=== PATIENT | female | born 1955 | race Caucasian/White ===

== ENCOUNTER → 2018-09-21 14:00 | Outpatient (CLI) | payer OTHER, SELFPAY | DX: Z23 Encounter for immunization (principal) | CPT/HCPCS: 90471; 90686 ==

== ENCOUNTER 2018-12-18 10:06 | Emergency (ER) | payer OTHER, SELFPAY ==
[2018-12-18 10:36] VITALS: BP 151/88; PULSE 77; RESP 14; TEMP 36.9; O2SAT 99
[2018-12-18 10:55] VITALS: PULSE 68
--- NOTE | 2018-12-18 11:00 | DI.RAD.S_ITS ---
PROCEDURE: XR HUMERUS LT 2V INDICATIONS: fall w/ pain left shoulder / humerous TECHNIQUE: 2 views of the humerus were acquired. COMPARISON: None. FINDINGS: Bones: Impaction and anterior displacement of the surgical neck humeral fracture. Additionally, there is minimally displaced combination involving the humeral head greater tuberosity. No definite shoulder dislocation.. Soft tissues: No suspicious soft tissue calcifications. IMPRESSION: Redemonstrated fracture of the humeral head and neck. No definite shoulder dislocation. Dictated by: Akiko Vidales M.D. on 12/18/2018 at 12:15 Approved by: Akiko Vidales M.D. on 12/18/2018 at 12:17
--- NOTE | 2018-12-18 11:00 | DI.RAD.S_ITS ---
PROCEDURE: XR SHOULDER LT MIN 2V INDICATIONS: fall w/ pain left shoulder / humerous TECHNIQUE: 2 views of the shoulder were acquired. COMPARISON: None. FINDINGS: Bones: Anteriorly displaced, impacted, and mildly comminuted fracture involving the humeral head and surgical neck. No suspicious bony lesions. Visualized ribs appear intact. Soft tissues: No suspicious soft tissue calcifications. IMPRESSION: Displaced, impacted, and comminuted humeral head and neck fracture. Dictated by: Akiko Vidales M.D. on 12/18/2018 at 12:14 Approved by: Akiko Vidales M.D. on 12/18/2018 at 12:15
--- NOTE | 2018-12-18 11:20 | ED.UPPEXIN ---
HPI - Extremity Injury (Upper) General Chief Complaint: Extremity Injury, Upper Stated Complaint: FELL HURT UPPER ARM JUST NOW Time Seen by Provider: 12/18/18 11:19 Source: patient and family (Son) Mode of arrival: ambulatory Limitations: no limitations History of Present Illness HPI narrative: This is a 63-year-old female comes to the emergency department with complaint of left shoulder pain. Patient was out walking her dog when she slipped and fell onto the shoulder. She had immediate pain. She denies injuring her head, neck or back. She states that she is not having any numbness tingling or weakness into the lower arm. She does not wish to move it. Patient denies any shortness of breath or chest pain. She denies any loss of consciousness no nausea or vomiting. Related Data Home Medications Medication Instructions Recorded Confirmed multivitamin 1 cap PO QAM 12/18/18 12/18/18 Previous Rx's Medication Instructions Recorded hydrocodone-acetaminophen [[place]] 1 tab PO Q6H PRN #20 tab 12/18/18 Allergies Allergy/AdvReac Type Severity Reaction Status Date / Time No Known Drug Allergies Allergy Verified 12/18/18 10:41 Review of Systems Review of Systems ROS Unobtainable: All systems reviewed & are unremarkable except as noted in HPI and below Constitutional Denies weakness ENT Ears, Nose, Mouth, and Throat: Denies neck pain Musculoskeletal Reports arthralgias, Denies joint swelling, Reports limited range of motion, Denies muscle weakness, Denies neck pain, Denies numbness, Reports radiating pain into limb, Reports stiffness and Denies tingling Integumentary/Breasts Denies unusual bruising and Denies wounds Neurologic Denies focal weakness, Denies numbness, Denies sensory deficit, Denies tingling and Denies weakness PFS Medical History H/O: hysterectomy (Acute) H/O: hysterectomy (Acute) History of colon cancer in adulthood (Acute) Surgical History H/O partial resection of colon (Acute) Social History Smoking Status: Never smoker Social History Smoking Status: Never smoker Exam Narrative Exam Narrative: GEN: Patient appears in mild distress. HEAD: No evidence of trauma, no raccoon/Lam sign. NECK: Nontender, painless range of motion, trachea midline Negative Nexus criteria, there is no mid line tenderness, distracting injury, altered mental status, neuro deficit, recent EtOH. EYES: PERRLA, EOMI ENT: External inspection normal, trachea is midline, airway is normal and with normal occlusion, No bony tenderness RESP: Chest is nontender and has symmetric movement, no ecchymosis, breath sounds are normal no crackles, wheezes or rales CVS: Heart sounds are normal, no murmur noted, No JVD. ABG/GI: Nontender, soft, normal bowel sounds, no distention, no organomegaly NEURO: Oriented AOx3, neuro is grossly intact, sensation and motor is normal all 4 extremities moving, cranial nerves II through XII are intact, GCS is 15 PSYCH: Normal mood and affect SKIN: Intact, warm and dry, no crepitus and without decubitus BACK: No CVA tenderness, no vertebral tenderness, no step-off's, no crepitus EXT: Patient has tenderness over the proximal shoulder no clear deformity, patient does not wish to take her arm through range of motion. She does not have any tenderness over the elbow, distal forearm, wrist or hand. Deck Mate is equal bilaterally, she has sensation throughout the hand and lower arm. 2+ radial pulse bilaterally. Patient ambulated in to the room. normal color and temperature. Initial Vital Signs Initial Vital Signs: Vital Signs Temperature 98.5 F 12/18/18 10:36 Pulse Rate 77 12/18/18 10:36 Respiratory Rate 14 12/18/18 10:36 Blood Pressure 151/88 H 12/18/18 10:36 Pulse Oximetry 99 12/18/18 10:36 Scores GCS Hugo coma scale eye opening: Spontaneous Hugo coma scale verbal response: Orientated [place] coma scale motor response: Obey commands [place] coma scale total score: 15 Course Orders Ordered: ED Orders 12/18/18 11:00 XR humerus LT 2V Stat XR shoulder LT min 2V Stat 12/18/18 11:47 CT UE LT wo con Stat Discontinued Medications Hydrocodone Bitart/Acetaminophen ([place] 5/325) 1 tab PO NOW ONE Stop: 12/18/18 11:35 Last Admin: 12/18/18 11:46 Dose: 1 tab Vital Signs - 8 hr 12/18/18 10:36 12/18/18 10:55 12/18/18 11:52 Temperature 98.5 F Pulse Rate 77 77 Pulse Rate [Left Radial] 68 Respiratory Rate 14 15 Blood Pressure 151/88 H Blood Pressure [Right Arm] 162/103 H Pulse Oximetry 99 99 12/18/18 13:12 Temperature Pulse Rate 73 Pulse Rate [Left Radial] Respiratory Rate 14 Blood Pressure Blood Pressure [Right Arm] 141/87 H Pulse Oximetry 99 MDM - Extremity Injury (Upper) Imaging Data humerus xray: Radiologist's impression: Magy Roberson 63 F [address] [address] XRay Report Signed Patient: Magy Roberson KMR#: [id number] : 1955cct:[id number] Age/Sex: 63 / FDate of Service: 12/18/18 Loc: ED Accession Number: [id number] Procedure: XR humerus LT 2V Ordering Provider: Kathrine Ewing D.O. PROCEDURE: XR HUMERUS LT 2V INDICATIONS: fall w/ pain left shoulder / humerous TECHNIQUE: 2 views of the humerus were acquired. COMPARISON: None. FINDINGS: Bones: Impaction and anterior displacement of the surgical neck humeral fracture. Additionally, there is minimally displaced combination involving the humeral head greater tuberosity. No definite shoulder dislocation.. Soft tissues: No suspicious soft tissue calcifications. IMPRESSION: Redemonstrated fracture of the humeral head and neck. No definite shoulder dislocation. Dictated by: Akiko Vidales M.D. on 12/18/2018 at 12:15 Approved by: Akiko Vidales M.D. on 12/18/2018 at 12:17 shoulder xray: Radiologist's impression: [address] [address] XRay Report Signed Patient: Magy Roberson KMR#: [id number] : 1955cct:[id number] Age/Sex: 63 / FDate of Service: 12/18/18 Loc: ED Accession Number: [id number] Procedure: XR shoulder LT min 2V Ordering Provider: Kathrine Ewing D.O. PROCEDURE: XR SHOULDER LT MIN 2V INDICATIONS: fall w/ pain left shoulder / humerous TECHNIQUE: 2 views of the shoulder were acquired. COMPARISON: None. FINDINGS: Bones: Anteriorly displaced, impacted, and mildly comminuted fracture involving the humeral head and surgical neck. No suspicious bony lesions. Visualized ribs appear intact. Soft tissues: No suspicious soft tissue calcifications. IMPRESSION: Displaced, impacted, and comminuted humeral head and neck fracture. Dictated by: Akiko Vidales M.D. on 12/18/2018 at 12:14 Approved by: Akiko Vidales M.D. on 12/18/2018 at 12:15 CT upper extremity: Radiologist's impression: [place] [address] CT Scan Report Signed Patient: Magy Roberson KMR#: [id number] : 4Acct:[id number] Age/Sex: 63 / FDate of Service: 12/18/18 Loc: ED Accession Number: [id number] Procedure: CT UE LT wo con Ordering Provider: Kathrine Ewing D.O. PROCEDURE: CT UE LT WO CON INDICATIONS: left proximal humeral fracture, ortho request TECHNIQUE: Noncontrast 1-1.5 mm thick sections acquired from the acromioclavicular joint to the inferior scapula, with coronal and sagittal reformatting. COMPARISON: None. FINDINGS: Image quality: Mild motion present.. Bones: Comminuted humeral head fracture with a vertical oriented fracture plane to the greater tuberosity with minimal displacement of fracture fragment. Transverse fracture across the surgical neck humerus with very mild anterior displacement of distal fracture fragment, which impacts on and comminutes the lesser tuberosity. Minimal fragment displacement. Humeral head alignment remains normal and the glenoid fossa. Caudally, fracture plane may course through the humeral head articular surface. Calcified spurs along the glenoid fossa. No glenoid fracture. No rib fractures visible. Soft tissues: No significant joint effusion or hematoma. Visible chest wall and underlying lung appear normal. IMPRESSION: 1. Comminuted, impacted, and minimally displaced humeral head and neck fracture (Neer classification: One part, given the minimal displacement of fracture fragments). Dictated by: Akiko Vidales M.D. on 12/18/2018 at 12:45 Approved by: Akiko Vidales M.D. on 12/18/2018 at 12:53 MDM Narrative Medical decision making narrative: Dr. Espinosa reviewed patient's x-ray imaging. Plan for follow-up in the outpatient at this time non operative surgical care. Shoulder immobilizer and p.o. medication for pain. He did ask if you're able to get a CT of the upper extremity would be very helpful. Discussed with patient she is comfortable doing this at this time. Discussed at was not sure about coverage from insurance perspective. Discharge Plan Departure Patient Disposition: Home Clinical Impression: Closed left humeral fracture Qualifiers: Encounter type: initial encounter Humerus Location: proximal Fracture alignment: displaced Discharge Date/Time: 12/18/18 13:30 Interventions: ED Discharge Assessment Last Done: 12/18/18 13:30 Instructions: DI for Shoulder Fracture Activity Restrictions/Additional Instructions: Follow-up with Orthopedic surgery in the next 5-7 days. Call Thursday for an appointment. Take disc of CT images with you to your appointment. Take pain medication as prescribed, you can take up to a 1000 mg of Tylenol every 8 hr as needed. You may take [place] for breakthrough pain, take 1-2 tablets every 6 hr as needed. Both of these medications have Tylenol so do not take more than 3000 mg of Tylenol total in 24 hr. You may use ice to the affected area as needed. Keep shoulder immobilizer clean and dry. Elevated affected body part to decrease swelling. OK to use ice pack on the affected body part. Use for 15-20 minutes each time, for 5-6x per day. If you develop worsening pain, numbness, tingling, discoloration of the affected body part, loosen the immobilizer, and either see your doctor for an urgent re-assessment, or return to the Emergency Department. Return to the Emergency Department for any new or worsening symptoms. Prescriptions: New hydrocodone-acetaminophen [[place]] 5-325 mg tablet 1 tab PO Q6H PRN (Reason: pain) Qty: 20 RF: 0 No Action multivitamin Capsule 1 cap PO QAM RF: 0 Referrals: Case Espinosa MD [Physician] -
--- NOTE | 2018-12-18 11:41 | ED_ITS ---
HPI - Extremity Injury (Upper) General Chief Complaint: Extremity Injury, Upper Stated Complaint: FELL HURT UPPER ARM JUST NOW Time Seen by Provider: 12/18/18 11:19 Source: patient and family (Son) Mode of arrival: ambulatory Limitations: no limitations History of Present Illness HPI narrative: This is a 63-year-old female comes to the emergency department with complaint of left shoulder pain. Patient was out walking her dog when she slipped and fell onto the shoulder. She had immediate pain. She denies injuring her head, neck or back. She states that she is not having any numbness tingling or weakness into the lower arm. She does not wish to move it. Patient denies any shortness of breath or chest pain. She denies any loss of consciousness no nausea or vomiting. Related Data Home Medications Medication Instructions Recorded Confirmed multivitamin 1 cap PO QAM 12/18/18 12/18/18 Previous Rx's Medication Instructions Recorded hydrocodone-acetaminophen [[place]] 1 tab PO Q6H PRN #20 tab 12/18/18 Allergies Allergy/AdvReac Type Severity Reaction Status Date / Time No Known Drug Allergies Allergy Verified 12/18/18 10:41 Review of Systems Review of Systems ROS Unobtainable: All systems reviewed & are unremarkable except as noted in HPI and below Constitutional Denies weakness ENT Ears, Nose, Mouth, and Throat: Denies neck pain Musculoskeletal Reports arthralgias, Denies joint swelling, Reports limited range of motion, Denies muscle weakness, Denies neck pain, Denies numbness, Reports radiating pain into limb, Reports stiffness and Denies tingling Integumentary/Breasts Denies unusual bruising and Denies wounds Neurologic Denies focal weakness, Denies numbness, Denies sensory deficit, Denies tingling and Denies weakness PFS Medical History H/O: hysterectomy (Acute) H/O: hysterectomy (Acute) History of colon cancer in adulthood (Acute) Surgical History H/O partial resection of colon (Acute) Social History Smoking Status: Never smoker Social History Smoking Status: Never smoker Exam Narrative Exam Narrative: GEN: Patient appears in mild distress. HEAD: No evidence of trauma, no raccoon/Lam sign. NECK: Nontender, painless range of motion, trachea midline Negative Nexus criteria, there is no mid line tenderness, distracting injury, altered mental status, neuro deficit, recent EtOH. EYES: PERRLA, EOMI ENT: External inspection normal, trachea is midline, airway is normal and with normal occlusion, No bony tenderness RESP: Chest is nontender and has symmetric movement, no ecchymosis, breath sounds are normal no crackles, wheezes or rales CVS: Heart sounds are normal, no murmur noted, No JVD. ABG/GI: Nontender, soft, normal bowel sounds, no distention, no organomegaly NEURO: Oriented AOx3, neuro is grossly intact, sensation and motor is normal all 4 extremities moving, cranial nerves II through XII are intact, GCS is 15 PSYCH: Normal mood and affect SKIN: Intact, warm and dry, no crepitus and without decubitus BACK: No CVA tenderness, no vertebral tenderness, no step-off's, no crepitus EXT: Patient has tenderness over the proximal shoulder no clear deformity, patient does not wish to take her arm through range of motion. She does not have any tenderness over the elbow, distal forearm, wrist or hand. Wood Cut Engraver is equal bilaterally, she has sensation throughout the hand and lower arm. 2+ radial pulse bilaterally. Patient ambulated in to the room. normal color and temperature. Initial Vital Signs Initial Vital Signs: Vital Signs Temperature 98.5 F 12/18/18 10:36 Pulse Rate 77 12/18/18 10:36 Respiratory Rate 14 12/18/18 10:36 Blood Pressure 151/88 H 12/18/18 10:36 Pulse Oximetry 99 12/18/18 10:36 Scores GCS Hugo coma scale eye opening: Spontaneous Hugo coma scale verbal response: Orientated Delta coma scale motor response: Obey commands Delta coma scale total score: 15 Course Orders Ordered: ED Orders 12/18/18 11:00 XR humerus LT 2V Stat XR shoulder LT min 2V Stat 12/18/18 11:47 CT UE LT wo con Stat Discontinued Medications Hydrocodone Bitart/Acetaminophen ([place] 5/325) 1 tab PO NOW ONE Stop: 12/18/18 11:35 Last Admin: 12/18/18 11:46 Dose: 1 tab Vital Signs - 8 hr 12/18/18 10:36 12/18/18 10:55 12/18/18 11:52 Temperature 98.5 F Pulse Rate 77 77 Pulse Rate [Left Radial] 68 Respiratory Rate 14 15 Blood Pressure 151/88 H Blood Pressure [Right Arm] 162/103 H Pulse Oximetry 99 99 12/18/18 13:12 Temperature Pulse Rate 73 Pulse Rate [Left Radial] Respiratory Rate 14 Blood Pressure Blood Pressure [Right Arm] 141/87 H Pulse Oximetry 99 MDM - Extremity Injury (Upper) Imaging Data humerus xray: Radiologist's impression: Magy Roberson 63 F [address] [address] XRay Report Signed Patient: Magy Roberson KMR#: [id number] : 1955cct:[id number] Age/Sex: 63 / FDate of Service: 12/18/18 Loc: ED Accession Number: [id number] Procedure: XR humerus LT 2V Ordering Provider: Kathrine Ewing D.O. PROCEDURE: XR HUMERUS LT 2V INDICATIONS: fall w/ pain left shoulder / humerous TECHNIQUE: 2 views of the humerus were acquired. COMPARISON: None. FINDINGS: Bones: Impaction and anterior displacement of the surgical neck humeral fracture. Additionally, there is minimally displaced combination involving the humeral head greater tuberosity. No definite shoulder dislocation.. Soft tissues: No suspicious soft tissue calcifications. IMPRESSION: Redemonstrated fracture of the humeral head and neck. No definite shoulder dislocation. Dictated by: Akiko Vidales M.D. on 12/18/2018 at 12:15 Approved by: Akiko Vidales M.D. on 12/18/2018 at 12:17 shoulder xray: Radiologist's impression: [address] [address] XRay Report Signed Patient: Magy Roberson KMR#: [id number] : 1955cct:[id number] Age/Sex: 63 / FDate of Service: 12/18/18 Loc: ED Accession Number: [id number] Procedure: XR shoulder LT min 2V Ordering Provider: Kathrine Ewing D.O. PROCEDURE: XR SHOULDER LT MIN 2V INDICATIONS: fall w/ pain left shoulder / humerous TECHNIQUE: 2 views of the shoulder were acquired. COMPARISON: None. FINDINGS: Bones: Anteriorly displaced, impacted, and mildly comminuted fracture involving the humeral head and surgical neck. No suspicious bony lesions. Visualized ribs appear intact. Soft tissues: No suspicious soft tissue calcifications. IMPRESSION: Displaced, impacted, and comminuted humeral head and neck fracture. Dictated by: Akiko Vidales M.D. on 12/18/2018 at 12:14 Approved by: Akiko Vidales M.D. on 12/18/2018 at 12:15 CT upper extremity: Radiologist's impression: [place] [address] CT Scan Report Signed Patient: Magy Roberson KMR#: [id number] : 4Acct:[id number] Age/Sex: 63 / FDate of Service: 12/18/18 Loc: ED Accession Number: [id number] Procedure: CT UE LT wo con Ordering Provider: Kathrine Ewing D.O. PROCEDURE: CT UE LT WO CON INDICATIONS: left proximal humeral fracture, ortho request TECHNIQUE: Noncontrast 1-1.5 mm thick sections acquired from the acromioclavicular joint to the inferior scapula, with coronal and sagittal reformatting. COMPARISON: None. FINDINGS: Image quality: Mild motion present.. Bones: Comminuted humeral head fracture with a vertical oriented fracture plane to the greater tuberosity with minimal displacement of fracture fragment. Transverse fracture across the surgical neck humerus with very mild anterior displacement of distal fracture fragment, which impacts on and comminutes the lesser tuberosity. Minimal fragment displacement. Humeral head alignment remains normal and the glenoid fossa. Caudally, fracture plane may course through the humeral head articular surface. Calcified spurs along the glenoid fossa. No glenoid fracture. No rib fractures visible. Soft tissues: No significant joint effusion or hematoma. Visible chest wall and underlying lung appear normal. IMPRESSION: 1. Comminuted, impacted, and minimally displaced humeral head and neck fracture (Neer classification: One part, given the minimal displacement of fracture fragments). Dictated by: Akiko Vidales M.D. on 12/18/2018 at 12:45 Approved by: Akiko Vidales M.D. on 12/18/2018 at 12:53 MDM Narrative Medical decision making narrative: Dr. Espinosa reviewed patient's x-ray imaging. Plan for follow-up in the outpatient at this time non operative surgical care. Shoulder immobilizer and p.o. medication for pain. He did ask if you're able to get a CT of the upper extremity would be very helpful. Discussed with patient she is comfortable doing this at this time. Discussed at was not sure about coverage from insurance perspective. Discharge Plan Departure Patient Disposition: Home Clinical Impression: Closed left humeral fracture Qualifiers: Encounter type: initial encounter Humerus Location: proximal Fracture alignment: displaced Discharge Date/Time: 12/18/18 13:30 Interventions: ED Discharge Assessment Last Done: 12/18/18 13:30 Instructions: DI for Shoulder Fracture Activity Restrictions/Additional Instructions: Follow-up with Orthopedic surgery in the next 5-7 days. Call Thursday for an appointment. Take disc of CT images with you to your appointment. Take pain medication as prescribed, you can take up to a 1000 mg of Tylenol every 8 hr as needed. You may take [place] for breakthrough pain, take 1-2 tablets every 6 hr as needed. Both of these medications have Tylenol so do not take more than 3000 mg of Tylenol total in 24 hr. You may use ice to the affected area as needed. Keep shoulder immobilizer clean and dry. Elevated affected body part to decrease swelling. OK to use ice pack on the affected body part. Use for 15-20 minutes each time, for 5-6x per day. If you develop worsening pain, numbness, tingling, discoloration of the affected body part, loosen the immobilizer, and either see your doctor for an urgent re-assessment, or return to the Emergency Department. Return to the Emergency Department for any new or worsening symptoms. Prescriptions: New hydrocodone-acetaminophen [[place]] 5-325 mg tablet 1 tab PO Q6H PRN (Reason: pain) Qty: 20 RF: 0 No Action multivitamin Capsule 1 cap PO QAM RF: 0 Referrals: Case Espinosa MD [Physician] -
[2018-12-18] MEDS: HYDROCODONE/ACET 5/325 TABLET 1 TAB PO (11:46)
--- NOTE | 2018-12-18 11:47 | DI.CT.S_ITS ---
PROCEDURE: CT UE LT WO CON INDICATIONS: left proximal humeral fracture, ortho request TECHNIQUE: Noncontrast 1-1.5 mm thick sections acquired from the acromioclavicular joint to the inferior scapula, with coronal and sagittal reformatting. COMPARISON: None. FINDINGS: Image quality: Mild motion present.. Bones: Comminuted humeral head fracture with a vertical oriented fracture plane to the greater tuberosity with minimal displacement of fracture fragment. Transverse fracture across the surgical neck humerus with very mild anterior displacement of distal fracture fragment, which impacts on and comminutes the lesser tuberosity. Minimal fragment displacement. Humeral head alignment remains normal and the glenoid fossa. Caudally, fracture plane may course through the humeral head articular surface. Calcified spurs along the glenoid fossa. No glenoid fracture. No rib fractures visible. Soft tissues: No significant joint effusion or hematoma. Visible chest wall and underlying lung appear normal. IMPRESSION: 1. Comminuted, impacted, and minimally displaced humeral head and neck fracture (Neer classification: One part, given the minimal displacement of fracture fragments). Dictated by: Akiko Vidales M.D. on 12/18/2018 at 12:45 Approved by: Akiko Vidales M.D. on 12/18/2018 at 12:53
[2018-12-18 11:52] VITALS: BP 162/103; PULSE 77; RESP 15; O2SAT 99
[2018-12-18 13:12] VITALS: BP 141/87; PULSE 73; RESP 14; O2SAT 99
== END 2018-12-18 13:30 | disposition home or self-care (01) ==
PROVIDERS: Emergency Provider Emergency Medicine
DX: S42.292A Other displaced fracture of upper end of left humerus, initial encounter for closed fracture (principal); W01.0XXA Fall on same level from slipping, tripping and stumbling without subsequent striking against object, initial encounter; Y93.K1 Activity, walking an animal
CPT/HCPCS: 73030; 73060; 73200; 99283; 99284

== ENCOUNTER → 2019-10-03 08:56 | Outpatient (CLI) | payer OTHER, SELFPAY | DX: Z23 Encounter for immunization (principal) | CPT/HCPCS: 90471; 90686 ==

== ENCOUNTER → 2020-08-08 00:40 | Outpatient (CLI) | payer OTHER, SELFPAY | PROVIDERS: Referring Provider Internal Medicine; Visit Provider Internal Medicine | DX: Z23 Encounter for immunization (principal) | CPT/HCPCS: 90471; 90662 ==

== ENCOUNTER → 2020-09-04 | Outpatient (CLI) | payer OTHER, SELFPAY | PROVIDERS: Referring Provider Internal Medicine; Visit Provider Internal Medicine | DX: Z23 Encounter for immunization (principal) | CPT/HCPCS: 90471; 90662 ==

== ENCOUNTER → 2020-11-07 09:10 | Outpatient (CLI) | payer OTHER, SELFPAY ==
[2020-11-07] MEDS: COVID-19 VACC(MODERNA-1)/PF 100 MCG/0.5 ML VIAL IM (09:14)
== END ==
PROVIDERS: Visit Provider Internal Medicine
DX: Z23 Encounter for immunization (principal)
CPT/HCPCS: 0011A; 91301

== ENCOUNTER → 2020-12-04 08:59 | Outpatient (CLI) | payer OTHER, SELFPAY ==
[2020-12-04] MEDS: COVID-19 VACC #2, MRNA(MOD) 100 MCG/0.5 ML VIAL IM (09:02)
== END ==
PROVIDERS: Visit Provider Internal Medicine
DX: Z23 Encounter for immunization (principal)
CPT/HCPCS: 0012A; 91301

== ENCOUNTER → 2021-09-13 07:59 | Outpatient (CLI) | payer OTHER, SELFPAY ==
[2021-09-13] MEDS: COVID-19 VACC #3, MRNA(MOD) 50 MCG/0.25 ML VIAL IM (08:02)
== END ==
PROVIDERS: Visit Provider Internal Medicine
DX: Z23 Encounter for immunization (principal)
CPT/HCPCS: 0013A; 91301

== ENCOUNTER → 2021-09-25 15:06 | Outpatient (CLI) | payer OTHER, SELFPAY | PROVIDERS: Referring Provider Internal Medicine; Visit Provider Internal Medicine | DX: Z23 Encounter for immunization (principal) | CPT/HCPCS: 90471; 90662 ==

== ENCOUNTER → 2022-08-29 15:29 | Outpatient (CLI) | payer OTHER, SELFPAY | PROVIDERS: Referring Provider Internal Medicine; Visit Provider Internal Medicine | DX: Z23 Encounter for immunization (principal) | CPT/HCPCS: 90471; 90686 ==

== ENCOUNTER → 2023-09-11 | Outpatient (CLI) | payer OTHER, SELFPAY | PROVIDERS: Referring Provider Family Medicine; Visit Provider Family Medicine | DX: Z23 Encounter for immunization (principal) | CPT/HCPCS: 90471; 90686 ==